=== PATIENT | male | born 1995 | race Caucasian/White ===

== ENCOUNTER 2016-12-09 14:33 | Outpatient (CLI) | payer OTHER | END 2016-12-09 14:34 | disposition short-term general hospital (02) | LOC: EMS 14:33 | PROVIDERS: ATTEND Surgery | DX: S99.911A Unspecified injury of right ankle, initial encounter (principal); W17.89XA Other fall from one level to another, initial encounter; Y93.31 Activity, mountain climbing, rock climbing and wall climbing; Y92.832 Beach as the place of occurrence of the external cause | CPT/HCPCS: A0425; A0429 ==